=== PATIENT | female | born 1970 | race African-American/Black ===

== ENCOUNTER 2019-05-23 11:28 | Inpatient (IN) | payer OTHER ==
[2019-05-23 13:38] VITALS: BMI 45.8
--- NOTE | 2019-05-23 16:52 | HP ---
CIWA Score Nausea/Vomitin-Mild Nausea/No Vomiting Muscle Tremors: 2 Anxiety: 2 Agitation: 2 Paroxysmal Sweats: 1-Minimal Palms Moist Orientation: 1-Uncertain about Date Tacttile Disturbances: 1-Very Mild Itch/Numbness Auditory Disturbances: 1-Very Mild Visual Disturbances: 1-Very Mild Sensitivity Headache: 1-Very Mild CIWA-Ar Total Score: 13 - Admission Criteria OASAS Guidelines: Admission for Medically Managed Detox: Requires at least one of the followin. CIWA greater than 12 2. Seizures within the past 24 hours 3. Delirium tremens within the past 24 hours 4. Hallucinations within the past 24 hours 5. Acute intervention needed for co occurring medical disorder 6. Acute intervention needed for co occurring psychiatric disorder 7. Severe withdrawal that cannot be handled at a lower level of care (continued vomiting, continued diarrhea, abnormal vital signs) requiring intravenous medication and/or fluids 8. Patient presents the following: CIWA greater than 12 Admission Criteria Met: Admission criteria met Admission ROS [facility] Chief Complaint: benzo detox Allergies/Adverse Reactions: Allergies Allergy/AdvReac Type Severity Reaction Status Date / Time Penicillins AdvReac Intermediate Difficulty Verified 05/23/19 13:23 Breathing History of Present Illness: 48 yo with h/o asthma, obesity, in a MAT methadone, was getting prescribed Klonopin for anxiety and was buying xanax from the street. Pt stated that a month ago she mixed methadone, cocaine and benzo, overdosed and was hospitalized for 2 days. She states her doctor stopped benzo prescription after the overdose. She is buying klonopin from the street- using 2 mg/day. Says she needs to stop using for her kids and risk of losing her new apartment. Pt states she is on methadone 160mg/day. Last dosed today. MH- pt not taking medications, Cocaine- 2 bags/week klonopin- 2mg/day PCP- does not know the name. DUR/ISTOP- Klonopin 1.5mg for 30 days recieved in Apr 10. - Ebola screening Have you traveled outside of the country in the last 21 days: No (N) Have you had contact with anyone from an Ebola affected area: No - Review of Systems Constitutional: No Symptoms Reported EENT: reports: No Symptoms Reported Respiratory: reports: No Symptoms reported Cardiac: reports: No Symptoms Reported GI: reports: No Symptoms Reported : reports: No Symptoms Reported Musculoskeletal: reports: Joint Pain (ankle pain) Integumentary: reports: No Symptoms Reported Neuro: reports: No Symptoms reported Endocrine: reports: No Symptoms Reported, Unexplained Weight Loss Psychiatric: reports: No Sypmtoms Reported Other Systems: Reviewed and Negative Patient History - Patient Medical History Hx Asthma: Yes Other Medical History: pt denies any MH problems at the present - Patient Surgical History Hx Cholecystectomy: Yes - Reproductive History Patient is a Female of Child Bearing Age (11 -55 yrs old): Yes (pt is lesbian, pt has 3 children) Patient : No - Smoking Cessation Smoking history: Current every day smoker Have you smoked in the past 12 months: Yes Aproximately how many cigarettes per day: 3 Initiated information on smoking cessation: Yes 'Breaking Loose' booklet given: 05/23/19 - Substance & Tx. History Hx Alcohol Use: Yes Hx Substance Use: Yes Substance Use Type: Cocaine, Heroin, Opiates Hx Substance Use Treatment: Yes - Substances abused Alprazolam (Xanax) Substance route: Oral Amount used: 4 TABLETS/ DAY Age of first use: 46 Date of last use: 05/22/19 Benzodiazepine (Klonopin) Substance route: Oral Frequency: Daily Amount used: 3 TABLETS Age of first use: 38 Date of last use: 05/21/19 Admission Physical Exam S - Vital Signs Vital Signs: Vital Signs - 24 hr 05/23/19 13:17 Temperature 97.7 F Pulse Rate 82 Respiratory 18 Rate Blood Pressure 113/80 - Physical General Appearance: Yes: Other (morbidly obese) HEENTM: Yes: Within Normal Limits, Hearing grossly Normal, Normal Voice, Pharynx Normal Respiratory: Yes: Within Normal Limits, Chest Non-Tender, Lungs Clear Neck: Yes: Within Normal Limits Cardiology: Yes: Within Normal Limits, Regular Rhythm, Regular Rate Abdominal: Yes: Within Normal Limits, Normal Bowel Sounds Genitourinary: Yes: Within Normal Limits Back: Yes: Within Normal Limits, Normal Inspection Musculoskeletal: Yes: Within Normal Limits Extremities: Yes: Within Normal Limits Neurological: Yes: Within Normal Limits Integumentary: Yes: Other (darkened skin of both lower extr) Lymphatic: Yes: Within Normal Limits Breathalyzer - Breathalyzer Breathalyzer: 0 Urine Drug Screen - Test Device Lot number: [id number] Expiration date: 12/06/20 - Control Is test valid?: Yes - Results Drug screen NEGATIVE: No Urine drug screen results: JONATHAN-Cocaine, MTD-Methadone, BZO-Benzodiazepines Inpatient Rehab Admission - Rehab Decision to Admit Inpatient rehab admission?: No
[2019-05-23] MEDS ORDERED: MAG HYDROX/AL HYDROX/SIMETH 30 ML UNIT-DOSE CUP PO PRN (17:03)
[2019-05-23] MEDS ORDERED: MENTHOL/PHENOL 1 EACH UD MM PRN (17:03)
[2019-05-23] MEDS ORDERED: IBUPROFEN 400 MG TABLET (FP) PO PRN (17:03)
[2019-05-23] MEDS ORDERED: BISMUTH SUBSALICYLATE 524 MG/30 ML UD PO PRN (17:03)
[2019-05-23] MEDS ORDERED: BACLOFEN 10 MG TABLET (FP) PO PRN (17:03)
[2019-05-23] MEDS ORDERED: ACETAMINOPHEN 325 MG TABLET (FP) PO PRN ×2 (17:03)
[2019-05-23] MEDS ORDERED: hydrOXYzine PAMOATE 25 MG CAPSULE (FP) PO PRN (17:03)
[2019-05-23] MEDS ORDERED: MAGNESIUM HYDROX 2400MG/30ML ORAL SUSPENSION 30 ML CUP PO PRN (17:03)
[2019-05-23] MEDS ORDERED: MELATONIN 5 MG TABLETS PO PRN (17:03)
[2019-05-23] MEDS ORDERED: MAGNESIUM CITRATE 300 ML BOTTLE PO PRN (17:03)
[2019-05-23] MEDS ORDERED: ALBUTEROL SO4 2.5/IPRATROPIUM 0.5 INH SOL 3 ML VIAL.NEB. NEB PRN (17:15)
[2019-05-23] MEDS ORDERED: diazePAM 5 MG TABLET PO ONE (17:45)
[2019-05-23] MEDS: HALOPERIDOL 5 MG TABLET PO SCH (22:16)
[2019-05-23] MEDS: ATORVASTATIN CA 20 MG TABLET (FP) PO SCH (22:16)
[2019-05-23] MEDS: THIAMINE HCL 100 MG TABLET (FP) PO SCH (22:17)
[2019-05-23] MEDS: diazePAM 5 MG TABLET PO SCH (22:17)
[2019-05-23] MEDS: BUDESONIDE/FORMETEROL FUMARATE 80/4.5 mcg INHALER IH SCH (22:56)
[2019-05-24] MEDS: diazePAM 5 MG TABLET PO PRN ×3 (01:48→18:50)
[2019-05-24] MEDS: diazePAM 5 MG TABLET PO SCH ×3 (06:52→22:26)
[2019-05-24] MEDS: metFORMIN HCL 500 MG TABLET (FP) PO SCH (06:53)
[2019-05-24] MEDS ORDERED: METHADONE HCL 40 MG DISPERSABLE TABLET PO ONE (09:15)
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
[2019-05-24] MEDS ORDERED: FOLIC ACID 1 MG TABLET (FP) PO SCH (10:00)
[2019-05-24] MEDS: PRENATAL VITAMINS W/ FOLIC ACID TABLET (FP) PO SCH (10:16)
[2019-05-24] MEDS: HALOPERIDOL 5 MG TABLET PO SCH ×2 (10:16→22:26)
[2019-05-24] MEDS: BUDESONIDE/FORMETEROL FUMARATE 80/4.5 mcg INHALER IH SCH ×2 (10:17→22:29)
[2019-05-24] MEDS: BENZTROPINE MESYLATE 1 MG TABLET PO SCH (10:18)
[2019-05-24] MEDS ORDERED: METHOCARBAMOL 500 MG TABLET PO PRN (11:52)
[2019-05-24] MEDS: NICOTINE POLACRILEX 2 MG GUM BUC PRN (13:24)
--- NOTE | 2019-05-24 13:44 | PN ---
[facility] Progress Note Note: pt states that [facility] is not the pharmacy she uses or has her Rx sent there. credit underwriter confirmed with pt that [facility] [address] is the pharmacy she uses. credit underwriter spoke with pharmacist who indicated that pt is on 600mg TID of gabapentin , advair 250/50 Inh, haldo 5mg bid x 2 days only, metformin 500mg qdaily. home medication updated in the home list.
--- NOTE | 2019-05-24 13:48 | PN ---
[facility] CIWA - CIWA Score Nausea/Vomitin-No Nausea/No Vomiting Muscle Tremors: 3 Anxiety: 2 Agitation: 3 Paroxysmal Sweats: 2 Orientation: 0-Oriented Tacttile Disturbances: 0-None Auditory Disturbances: 0-None Visual Disturbances: 0-None Headache: 0-None Present CIWA-Ar Total Score: 10 [facility] Progress Note (SOAP) Subjective: body aches sweats irritable agitation Objective: 05/24/19 13:47 Vital Signs Temperature 97.7 F 05/24/19 10:00 Pulse Rate 60 05/24/19 10:00 Respiratory Rate 18 05/24/19 10:00 Blood Pressure 136/85 05/24/19 10:00 O2 Sat by Pulse Oximetry (%) Laboratory Tests 05/24/19 06:50 POC Glucometer 92 rest of labs pending aaox3 ambulating no acute distress Assessment: 05/24/19 13:47 withdrawals Plan: continue detox increase fluids medication confirmed by pharmacy that pt currently is connected with and her meds updated and ordered.
[2019-05-24] MEDS: GABAPENTIN 300 MG CAPSULE PO SCH ×2 (14:45→22:26)
[2019-05-24] MEDS: NICOTINE 14 MG/24 HOURS TOPICAL PATCH TD SCH (15:07)
[2019-05-24] MEDS ORDERED: SUVOREXANT 10 MG TABLET PO PRN (22:00)
[2019-05-24] MEDS: ATORVASTATIN CA 20 MG TABLET (FP) PO SCH (22:26)
[2019-05-24] MEDS: THIAMINE HCL 100 MG TABLET (FP) PO SCH (22:27)
[2019-05-25] MEDS: diazePAM 5 MG TABLET PO SCH ×3 (05:36→22:08)
[2019-05-25] MEDS: GABAPENTIN 300 MG CAPSULE PO SCH ×3 (05:36→22:08)
[2019-05-25] MEDS: METHADONE HCL 40 MG DISPERSABLE TABLET PO SCH (05:36)
[2019-05-25] MEDS: metFORMIN HCL 500 MG TABLET (FP) PO SCH (06:50)
[2019-05-25] MEDS: diazePAM 5 MG TABLET PO PRN ×3 (07:56→17:14)
[2019-05-25 09:26] LABS: HEMOGLOBIN 12.1 GM/dL (10.7-15.3); MCH 26.4 pg (25.7-33.7); MCHC 31.7 g/dl (32.0-36.0); MEAN CELL VOLUME 83.4 fl (80-96); MEAN PLT VOLUME 10.3 fl (7.5-11.1); PLATELET COUNT 214 K/MM3 (134-434); RBC 4.57 M/mm3 (3.60-5.2); RDW 15.8 % (11.6-15.6)
[2019-05-25 09:37] LABS: ALBUMIN 3.5 g/dl (3.4-5.0); BILIRUBIN,TOTAL 0.4 mg/dL (0.2-1); BLOOD UREA NITROGEN 15.9 mg/dL (7-18); CALCIUM 8.9 mg/dL (8.5-10.1); CREATININE 0.8 mg/dL (0.55-1.3); POTASSIUM 4.5 mmol/L (3.5-5.1); TOT PROT 8.3 g/dl (6.4-8.2)
[2019-05-25] MEDS: PRENATAL VITAMINS W/ FOLIC ACID TABLET (FP) PO SCH (10:23)
[2019-05-25] MEDS: BENZTROPINE MESYLATE 1 MG TABLET PO SCH (10:24)
[2019-05-25] MEDS: NICOTINE 14 MG/24 HOURS TOPICAL PATCH TD SCH (10:24)
[2019-05-25] MEDS: BUDESONIDE/FORMETEROL FUMARATE 80/4.5 mcg INHALER IH SCH ×2 (10:24→22:09)
--- NOTE | 2019-05-25 12:30 | PN ---
S CIWA - CIWA Score Nausea/Vomitin-No Nausea/No Vomiting Muscle Tremors: 4-Moderate,w/Arms Extend Anxiety: 3 Agitation: 3 Paroxysmal Sweats: 3 Orientation: 0-Oriented Tacttile Disturbances: 0-None Auditory Disturbances: 0-None Visual Disturbances: 0-None Headache: 0-None Present CIWA-Ar Total Score: 13 [facility] Progress Note (SOAP) Subjective: seats body aches dry feet with callous Objective: 05/25/19 12:30 Vital Signs Temperature 97.9 F 05/25/19 09:43 Pulse Rate 78 05/25/19 09:43 Respiratory Rate 05/25/19 09:43 Blood Pressure 142/95 05/25/19 09:43 O2 Sat by Pulse Oximetry (%) Laboratory Tests 05/24/19 05/25/19 05/25/19 06:50 05:42 08:20 WBC 6.0 RBC 4.57 Hgb 12.1 Hct 38.0 MCV 83.4 MCH 26.4 MCHC 31.7 L RDW 15.8 H Plt Count 214 MPV 10.3 Sodium Potassium Chloride Carbon Dioxide Anion Gap BUN Creatinine Est GFR (CKD-EPI)AfAm Est GFR (CKD-EPI)NonAf POC Glucometer 92 100 Random Glucose Calcium Total Bilirubin AST ALT Alkaline Phosphatase Total Protein Albumin RPR Titer 05/25/19 05/25/19 08:20 08:20 WBC RBC Hgb Hct MCV MCH MCHC RDW Plt Count MPV Sodium 139 Potassium 4.5 Chloride 106 Carbon Dioxide 28 Anion Gap 5 L BUN 15.9 Creatinine 0.8 Est GFR (CKD-EPI)AfAm 100.33 Est GFR (CKD-EPI)NonAf 86.57 POC Glucometer Random Glucose 92 Calcium 8.9 Total Bilirubin 0.4 AST 24 ALT 31 Alkaline Phosphatase 122 H Total Protein 8.3 H Albumin 3.5 RPR Titer Nonreactive aaox3 ambulating no acute distress Assessment: 05/25/19 12:30 withdrawals Plan: continue detox tinactin cream and vitamin a&d oint to apply to both feet increase fluids
[2019-05-25] MEDS: TOLNAFTATE 1% CREAM 15 GM TUBE TP SCH ×2 (14:43→22:09)
[2019-05-25] MEDS: VITAMINS A AND D TOPICAL OINTMENT 60 GM TUBE TP SCH (17:14)
[2019-05-25] MEDS: ATORVASTATIN CA 20 MG TABLET (FP) PO SCH (22:09)
[2019-05-25] MEDS: THIAMINE HCL 100 MG TABLET (FP) PO SCH (22:09)
[2019-05-26] MEDS: diazePAM 5 MG TABLET PO PRN ×3 (00:35→22:33)
[2019-05-26] MEDS: VITAMINS A AND D TOPICAL OINTMENT 60 GM TUBE TP SCH ×4 (00:50→17:40)
[2019-05-26] MEDS: diazePAM 5 MG TABLET PO SCH ×2 (05:32→17:00)
[2019-05-26] MEDS: METHADONE HCL 40 MG DISPERSABLE TABLET PO SCH (05:32)
[2019-05-26] MEDS: GABAPENTIN 300 MG CAPSULE PO SCH ×3 (05:32→22:32)
[2019-05-26] MEDS: metFORMIN HCL 500 MG TABLET (FP) PO SCH (07:30)
[2019-05-26] MEDS: NICOTINE POLACRILEX 2 MG GUM BUC PRN ×2 (08:03→11:00)
[2019-05-26] MEDS: TOLNAFTATE 1% CREAM 15 GM TUBE TP SCH ×2 (10:55→22:32)
[2019-05-26] MEDS: BUDESONIDE/FORMETEROL FUMARATE 80/4.5 mcg INHALER IH SCH ×2 (10:55→22:32)
[2019-05-26] MEDS: NICOTINE 14 MG/24 HOURS TOPICAL PATCH TD SCH (10:55)
[2019-05-26] MEDS: PRENATAL VITAMINS W/ FOLIC ACID TABLET (FP) PO SCH (10:55)
--- NOTE | 2019-05-26 17:50 | PN ---
S CIWA - CIWA Score Nausea/Vomitin-No Nausea/No Vomiting Muscle Tremors: None Anxiety: 4-Mod. Anxious/Guarded Agitation: 2 Paroxysmal Sweats: No Perspiration Orientation: 0-Oriented Tacttile Disturbances: 2-Mild Itch/Numbness/Burn Auditory Disturbances: 0-None Visual Disturbances: 0-None Headache: 0-None Present CIWA-Ar Total Score: 8 [facility] Progress Note (SOAP) Subjective: Sweating, Anxious, Body Aches. Objective: PATIENT A & O X 3, OBSERVED AMBULATING ON DETOX UNIT UNASSISTED. IN NO ACUTE DISTRESS. 05/26/19 17:47 Vital Signs Temperature 97.5 F L 05/26/19 15:43 Pulse Rate 91 H 05/26/19 15:43 Respiratory Rate 18 05/26/19 15:43 Blood Pressure 141/75 05/26/19 15:43 O2 Sat by Pulse Oximetry (%) Laboratory Tests 05/24/19 05/25/19 05/25/19 06:50 05:42 08:20 WBC 6.0 RBC 4.57 Hgb 12.1 Hct 38.0 MCV 83.4 MCH 26.4 MCHC 31.7 L RDW 15.8 H Plt Count 214 MPV 10.3 Sodium Potassium Chloride Carbon Dioxide Anion Gap BUN Creatinine Est GFR (CKD-EPI)AfAm Est GFR (CKD-EPI)NonAf POC Glucometer 92 100 Random Glucose Calcium Total Bilirubin AST ALT Alkaline Phosphatase Total Protein Albumin RPR Titer 05/25/19 05/25/19 05/26/19 08:20 08:20 05:36 WBC RBC Hgb Hct MCV MCH MCHC RDW Plt Count MPV Sodium 139 Potassium 4.5 Chloride 106 Carbon Dioxide 28 Anion Gap 5 L BUN 15.9 Creatinine 0.8 Est GFR (CKD-EPI)AfAm 100.33 Est GFR (CKD-EPI)NonAf 86.57 POC Glucometer 124 Random Glucose 92 Calcium 8.9 Total Bilirubin 0.4 AST 24 ALT 31 Alkaline Phosphatase 122 H Total Protein 8.3 H Albumin 3.5 RPR Titer Nonreactive LABS NOTED. Assessment: 05/26/19 17:48 WITHDRAWAL SYMPTOMS. Plan: CONTINUE DETOX. PRN VALIUM EXTENDED BY 1 DAY DUE TO PERSISTENT ANXIETY REPORTED BY PATIENT TODAY.
[2019-05-26] MEDS: THIAMINE HCL 100 MG TABLET (FP) PO SCH (22:32)
[2019-05-26] MEDS: ATORVASTATIN CA 20 MG TABLET (FP) PO SCH (22:32)
[2019-05-27] MEDS: VITAMINS A AND D TOPICAL OINTMENT 60 GM TUBE TP SCH ×4 (00:40→19:12)
[2019-05-27] MEDS: NICOTINE POLACRILEX 2 MG GUM BUC PRN ×4 (00:41→13:27)
[2019-05-27] MEDS: METHADONE HCL 40 MG DISPERSABLE TABLET PO SCH (06:32)
[2019-05-27] MEDS: diazePAM 5 MG TABLET PO SCH (06:33)
[2019-05-27] MEDS: GABAPENTIN 300 MG CAPSULE PO SCH ×3 (06:33→21:34)
[2019-05-27] MEDS: metFORMIN HCL 500 MG TABLET (FP) PO SCH (06:34)
[2019-05-27] MEDS: diazePAM 5 MG TABLET PO PRN ×2 (09:08→13:26)
[2019-05-27] MEDS: BUDESONIDE/FORMETEROL FUMARATE 80/4.5 mcg INHALER IH SCH ×2 (10:25→21:35)
[2019-05-27] MEDS: NICOTINE 14 MG/24 HOURS TOPICAL PATCH TD SCH (10:25)
[2019-05-27] MEDS: PRENATAL VITAMINS W/ FOLIC ACID TABLET (FP) PO SCH (10:25)
[2019-05-27] MEDS: TOLNAFTATE 1% CREAM 15 GM TUBE TP SCH ×2 (10:26→21:37)
--- NOTE | 2019-05-27 11:03 | EKG ---
Test Reason : Blood Pressure : / mmHG Vent. Rate : 066 BPM Atrial Rate : 066 BPM P-R Int : 162 ms QRS Dur : 092 ms QT Int : 452 ms P-R-T Axes : 057 037 054 degrees QTc Int : 473 ms NORMAL SINUS RHYTHM MINIMAL VOLTAGE CRITERIA FOR LVH, MAY BE NORMAL VARIANT NONSPECIFIC T WAVE ABNORMALITY PROLONGED QT ABNORMAL ECG NO PREVIOUS ECGS AVAILABLE Confirmed by THOMAS OSEI MD ([id number]) on 05/27/2019 11:03:15 AM Referred By: Confirmed By:THOMAS OSEI MD
--- NOTE | 2019-05-27 14:48 | PN ---
S CIWA - CIWA Score Nausea/Vomitin-No Nausea/No Vomiting Muscle Tremors: 2 Anxiety: 1-Mildly Anxious Agitation: 1-Slight > Activity Paroxysmal Sweats: No Perspiration Orientation: 0-Oriented Tacttile Disturbances: 0-None Auditory Disturbances: 0-None Visual Disturbances: 0-None Headache: 0-None Present CIWA-Ar Total Score: 4 [facility] Progress Note (SOAP) Subjective: feeling better sweats at night anxiety Objective: 05/27/19 14:48 Vital Signs Temperature 98.1 F 05/27/19 14:26 Pulse Rate 68 05/27/19 14:26 Respiratory Rate 16 05/27/19 14:26 Blood Pressure 144/72 05/27/19 14:26 O2 Sat by Pulse Oximetry (%) aaox3 ambulating no acute distress Assessment: 05/27/19 14:48 mild withdrawals Plan: d/c in am
[2019-05-27] MEDS: ATORVASTATIN CA 20 MG TABLET (FP) PO SCH (21:34)
[2019-05-27] MEDS: THIAMINE HCL 100 MG TABLET (FP) PO SCH (21:35)
[2019-05-28] MEDS: VITAMINS A AND D TOPICAL OINTMENT 60 GM TUBE TP SCH ×2 (01:12→06:36)
[2019-05-28] MEDS ORDERED: diazePAM 5 MG TABLET PO ONE (06:00)
[2019-05-28] MEDS: METHADONE HCL 40 MG DISPERSABLE TABLET PO SCH (06:29)
[2019-05-28] MEDS: GABAPENTIN 300 MG CAPSULE PO SCH (06:29)
[2019-05-28] MEDS: metFORMIN HCL 500 MG TABLET (FP) PO SCH (06:37)
[2019-05-28 07:02] VITALS: BP 119/81; PULSE 77; TEMP 97
--- NOTE | 2019-05-28 09:40 | DS ---
[facility] Detox Discharge Summary Admission Date: 05/23/19 Discharge Date: 05/28/19 - History Present History: Cocaine Dependence - Physical Exam Results Vital Signs: Vital Signs Temperature 97.0 F L 05/28/19 07:01 Pulse Rate 77 05/28/19 07:01 Respiratory Rate 18 05/28/19 07:01 Blood Pressure 119/81 05/28/19 07:01 O2 Sat by Pulse Oximetry (%) Pertinent Admission Physical Exam Findings: Vital Signs Temperature 97.0 F L 05/28/19 07:01 Pulse Rate 77 05/28/19 07:01 Respiratory Rate 18 05/28/19 07:01 Blood Pressure 119/81 05/28/19 07:01 O2 Sat by Pulse Oximetry (%) Laboratory Tests 05/24/19 05/25/19 05/25/19 06:50 05:42 08:20 WBC 6.0 RBC 4.57 Hgb 12.1 Hct 38.0 MCV 83.4 MCH 26.4 MCHC 31.7 L RDW 15.8 H Plt Count 214 MPV 10.3 Sodium Potassium Chloride Carbon Dioxide Anion Gap BUN Creatinine Est GFR (CKD-EPI)AfAm Est GFR (CKD-EPI)NonAf POC Glucometer 92 100 Random Glucose Calcium Total Bilirubin AST ALT Alkaline Phosphatase Total Protein Albumin RPR Titer 05/25/19 05/25/19 05/26/19 08:20 08:20 05:36 WBC RBC Hgb Hct MCV MCH MCHC RDW Plt Count MPV Sodium 139 Potassium 4.5 Chloride 106 Carbon Dioxide 28 Anion Gap 5 L BUN 15.9 Creatinine 0.8 Est GFR (CKD-EPI)AfAm 100.33 Est GFR (CKD-EPI)NonAf 86.57 POC Glucometer 124 Random Glucose 92 Calcium 8.9 Total Bilirubin 0.4 AST 24 ALT 31 Alkaline Phosphatase 122 H Total Protein 8.3 H Albumin 3.5 RPR Titer Nonreactive 05/27/19 05/27/19 05/28/19 06:30 15:01 06:27 WBC RBC Hgb Hct MCV MCH MCHC RDW Plt Count MPV Sodium Potassium Chloride Carbon Dioxide Anion Gap BUN Creatinine Est GFR (CKD-EPI)AfAm Est GFR (CKD-EPI)NonAf POC Glucometer 116 180 139 Random Glucose Calcium Total Bilirubin AST ALT Alkaline Phosphatase Total Protein Albumin RPR Titer aaox3 ambulating no acute distress - Treatment Hospital Course: Detox Protocol Followed, Detoxed Safely, Responded well, Discharged Condition Good, Rehab Referral Accepted - Medication Discharge Medications: Ambulatory Orders Fluticasone/Salmeterol [Advair 250-50 Diskus] 1 each IH DAILY 05/24/19 metFORMIN HCL [Metformin HCl ER] 500 mg PO ACBK 05/24/19 - Diagnosis (1) Cocaine dependence Current Visit: Yes Status: Chronic Qualifiers: Substance use status: uncomplicated Qualified Code(s): F14.20 - Cocaine dependence, uncomplicated (2) Sedative hypnotic or anxiolytic dependence Current Visit: Yes Status: Acute (3) Substance induced mood disorder Current Visit: Yes Status: Acute (4) Substance-induced sleep disorder Current Visit: Yes Status: Acute (5) Asthma Current Visit: Yes Status: Chronic Qualifiers: Asthma severity: mild Asthma persistence: unspecified Asthma complication type: unspecified Qualified Code(s): J45.909 - Unspecified asthma , uncomplicated (6) Dyslipidemia Current Visit: Yes Status: Chronic (7) Nicotine dependence Current Visit: Yes Status: Chronic Qualifiers: Nicotine product type: cigarettes Substance use status: uncomplicated Qualified Code(s): F17.210 - Nicotine dependence, cigarettes, uncomplicated (8) Schizophrenia Current Visit: Yes Status: Chronic (9) Type 2 diabetes mellitus Current Visit: Yes Status: Chronic (10) Paranoid schizophrenia Current Visit: Yes Status: Ruled-out - AMA Did Patient Leave Against Medical Advice: No
[2019-05-28] MEDS: PRENATAL VITAMINS W/ FOLIC ACID TABLET (FP) PO SCH (10:22)
[2019-05-28] MEDS: BUDESONIDE/FORMETEROL FUMARATE 80/4.5 mcg INHALER IH SCH (10:22)
[2019-05-28] MEDS: NICOTINE 14 MG/24 HOURS TOPICAL PATCH TD SCH (10:22)
== END 2019-05-28 10:39 | disposition home or self-care (01) | DRG 774 ==
LOC: YASAS 11:28 → Y6N 17:30
PROVIDERS: ADMIT Allergy & Immunology; ATTEND Allergy & Immunology
PROC: HZ2ZZZZ Detoxification Services for Substance Abuse Treatment (ICD-10-PCS; principal; 2019-05-23)
DX: F13.230 Sedative, hypnotic or anxiolytic dependence with withdrawal, uncomplicated (principal); F14.20 Cocaine dependence, uncomplicated; F17.210 Nicotine dependence, cigarettes, uncomplicated; F19.24 Other psychoactive substance dependence with psychoactive substance-induced mood disorder; F19.282 Other psychoactive substance dependence with psychoactive substance-induced sleep disorder; F20.0 Paranoid schizophrenia; E78.5 Hyperlipidemia, unspecified; J45.909 Unspecified asthma, uncomplicated; E11.9 Type 2 diabetes mellitus without complications; E66.01 Morbid (severe) obesity due to excess calories; Z68.42 Body mass index [BMI] 45.0-49.9, adult; Z88.0 Allergy status to penicillin; Z79.84 Long term (current) use of oral hypoglycemic drugs; Z62.810 Personal history of physical and sexual abuse in childhood
CPT/HCPCS: 36415; 80053; 82962; 85027; 86593; 93005; 93010

== ENCOUNTER 2021-06-24 12:44 | Inpatient (IN) | payer OTHER ==
[2021-06-24 14:28] VITALS: BMI 42.7
[2021-06-24] MEDS ORDERED: NICOTINE 10 MG CARTRIDGE (INHALER) IH PRN (14:33)
[2021-06-24] MEDS ORDERED: MAG HYDROX/AL HYDROX/SIMETH 30 ML UNIT-DOSE CUP PO PRN (14:33)
[2021-06-24] MEDS ORDERED: MAGNESIUM CITRATE 300 ML BOTTLE PO PRN (14:33)
[2021-06-24] MEDS ORDERED: ONDANSETRON *ODT* 4 MG TABLET SL PRN (14:33)
[2021-06-24] MEDS ORDERED: MENTHOL/PHENOL 1 EACH UD MM PRN (14:33)
[2021-06-24] MEDS ORDERED: LOPERAMIDE HCL 2 MG CAPSULE PO PRN (14:33)
[2021-06-24] MEDS ORDERED: BISMUTH SUBSALICYLATE 262 MG/15 ML BTL PO PRN (14:33)
[2021-06-24] MEDS ORDERED: MAGNESIUM HYDROX 2400MG/30ML ORAL SUSPENSION 30 ML CUP PO PRN (14:33)
[2021-06-24] MEDS ORDERED: IBUPROFEN 400 MG TABLET (FP) PO PRN (14:33)
[2021-06-24] MEDS ORDERED: ACETAMINOPHEN 325 MG TABLET (FP) PO PRN ×2 (14:33)
[2021-06-24] MEDS ORDERED: METHOCARBAMOL 500 MG TABLET PO PRN (14:33)
[2021-06-24] MEDS ORDERED: DEXTROSE 50%-WATER - 25 GM/50 ML VIAL IVPUSH PRN (19:41)
[2021-06-24] MEDS: hydrOXYzine PAMOATE 25 MG CAPSULE (FP) PO SCH ×2 (20:00→22:03)
[2021-06-24] MEDS: PRENATAL VITAMINS W/ FOLIC ACID TABLET (FP) PO SCH (20:13)
[2021-06-24] MEDS: diazePAM 5 MG TABLET PO SCH (22:02)
[2021-06-24] MEDS: THIAMINE HCL 100 MG TABLET (FP) PO SCH (22:03)
[2021-06-24] MEDS: NICOTINE POLACRILEX 2 MG GUM BUC PRN (22:03)
[2021-06-24] MEDS: MELATONIN 5 MG TABLETS PO SCH (22:03)
[2021-06-24] MEDS: INSULIN SLIDING SCALE (NOVOLOG) 1 VIAL SQ SCH (22:44)
[2021-06-25] MEDS: diazePAM 5 MG TABLET PO PRN ×2 (01:49→20:32)
[2021-06-25] MEDS: NICOTINE POLACRILEX 2 MG GUM BUC PRN ×3 (02:10→20:33)
[2021-06-25] MEDS: diazePAM 5 MG TABLET PO SCH ×4 (06:44→22:32)
[2021-06-25] MEDS: hydrOXYzine PAMOATE 25 MG CAPSULE (FP) PO SCH ×5 (06:45→22:28)
[2021-06-25] MEDS: INSULIN SLIDING SCALE (NOVOLOG) 1 VIAL SQ SCH ×4 (08:17→22:58)
[2021-06-25] MEDS: ASPIRIN 81 MG CHEWABLE TABLETS PO SCH (10:39)
[2021-06-25] MEDS: PRENATAL VITAMINS W/ FOLIC ACID TABLET (FP) PO SCH (10:39)
[2021-06-25] MEDS ORDERED: methaDONE HCL 10 MG TABLET PO SCH (13:00)
[2021-06-25] MEDS ORDERED: methaDONE HCL 40 MG DISPERSABLE TABLET ONE (13:04)
[2021-06-25] MEDS ORDERED: methaDONE HCL 10 MG TABLET ONE (13:04)
[2021-06-25] MEDS: HALOPERIDOL 5 MG TABLET PO SCH ×2 (13:52→22:32)
[2021-06-25] MEDS: BENZTROPINE MESYLATE 1 MG TABLET PO SCH ×2 (13:56→22:32)
[2021-06-25] MEDS: THIAMINE HCL 100 MG TABLET (FP) PO SCH (22:32)
[2021-06-25] MEDS: MELATONIN 5 MG TABLETS PO SCH (22:32)
[2021-06-26] MEDS: diazePAM 5 MG TABLET PO PRN ×2 (00:50→16:16)
[2021-06-26] MEDS: NICOTINE POLACRILEX 2 MG GUM BUC PRN ×2 (00:50→10:12)
[2021-06-26] MEDS ORDERED: methaDONE HCL 10 MG TABLET ONE (04:35)
[2021-06-26] MEDS ORDERED: methaDONE HCL 40 MG DISPERSABLE TABLET ONE (04:36)
[2021-06-26] MEDS: hydrOXYzine PAMOATE 25 MG CAPSULE (FP) PO SCH ×5 (06:13→22:24)
[2021-06-26] MEDS: diazePAM 5 MG TABLET PO SCH ×3 (06:14→22:24)
[2021-06-26] MEDS: INSULIN SLIDING SCALE (NOVOLOG) 1 VIAL SQ SCH ×4 (08:14→22:27)
[2021-06-26] MEDS: BENZTROPINE MESYLATE 1 MG TABLET PO SCH ×2 (10:11→22:25)
[2021-06-26] MEDS: PRENATAL VITAMINS W/ FOLIC ACID TABLET (FP) PO SCH (10:11)
[2021-06-26] MEDS: ASPIRIN 81 MG CHEWABLE TABLETS PO SCH (10:12)
[2021-06-26] MEDS: HALOPERIDOL 5 MG TABLET PO SCH ×2 (10:12→22:25)
[2021-06-26] MEDS: MELATONIN 5 MG TABLETS PO SCH (22:25)
[2021-06-26] MEDS: THIAMINE HCL 100 MG TABLET (FP) PO SCH (22:25)
[2021-06-27] MEDS: NICOTINE POLACRILEX 2 MG GUM BUC PRN (01:31)
[2021-06-27] MEDS: diazePAM 5 MG TABLET PO PRN ×2 (02:30→12:13)
[2021-06-27] MEDS ORDERED: methaDONE HCL 10 MG TABLET ONE (04:30)
[2021-06-27] MEDS ORDERED: methaDONE HCL 40 MG DISPERSABLE TABLET ONE (04:31)
[2021-06-27] MEDS: hydrOXYzine PAMOATE 25 MG CAPSULE (FP) PO SCH ×5 (06:31→22:29)
[2021-06-27] MEDS: diazePAM 5 MG TABLET PO SCH ×2 (06:31→17:29)
[2021-06-27] MEDS: INSULIN SLIDING SCALE (NOVOLOG) 1 VIAL SQ SCH ×4 (06:36→22:33)
[2021-06-27] MEDS: HALOPERIDOL 5 MG TABLET PO SCH ×2 (12:02→22:29)
[2021-06-27] MEDS: ASPIRIN 81 MG CHEWABLE TABLETS PO SCH (12:02)
[2021-06-27] MEDS: BENZTROPINE MESYLATE 1 MG TABLET PO SCH ×2 (12:02→22:29)
[2021-06-27] MEDS: PRENATAL VITAMINS W/ FOLIC ACID TABLET (FP) PO SCH (12:05)
[2021-06-27] MEDS: THIAMINE HCL 100 MG TABLET (FP) PO SCH (22:29)
[2021-06-27] MEDS: MELATONIN 5 MG TABLETS PO SCH (22:29)
[2021-06-28] MEDS ORDERED: methaDONE HCL 40 MG DISPERSABLE TABLET ONE (02:06)
[2021-06-28] MEDS ORDERED: methaDONE HCL 10 MG TABLET ONE (02:06)
[2021-06-28] MEDS ORDERED: diazePAM 5 MG TABLET PO ONE (06:00)
[2021-06-28] MEDS: hydrOXYzine PAMOATE 25 MG CAPSULE (FP) PO SCH ×5 (06:21→22:53)
[2021-06-28] MEDS: INSULIN SLIDING SCALE (NOVOLOG) 1 VIAL SQ SCH ×4 (06:44→22:53)
[2021-06-28] MEDS: PRENATAL VITAMINS W/ FOLIC ACID TABLET (FP) PO SCH (10:14)
[2021-06-28] MEDS: BENZTROPINE MESYLATE 1 MG TABLET PO SCH ×2 (10:14→22:50)
[2021-06-28] MEDS: HALOPERIDOL 5 MG TABLET PO SCH ×2 (10:15→22:50)
[2021-06-28] MEDS: NICOTINE POLACRILEX 2 MG GUM BUC PRN (10:18)
[2021-06-28] MEDS: ASPIRIN 81 MG CHEWABLE TABLETS PO SCH (10:52)
[2021-06-28] MEDS: MELATONIN 5 MG TABLETS PO SCH (22:50)
[2021-06-28] MEDS: THIAMINE HCL 100 MG TABLET (FP) PO SCH (22:50)
[2021-06-29] MEDS: NICOTINE POLACRILEX 2 MG GUM BUC PRN (03:32)
[2021-06-29] MEDS ORDERED: methaDONE HCL 10 MG TABLET ONE (04:56)
[2021-06-29] MEDS ORDERED: methaDONE HCL 40 MG DISPERSABLE TABLET ONE (04:57)
[2021-06-29] MEDS: hydrOXYzine PAMOATE 25 MG CAPSULE (FP) PO SCH ×2 (06:43→11:08)
[2021-06-29] MEDS: INSULIN SLIDING SCALE (NOVOLOG) 1 VIAL SQ SCH ×2 (08:13→12:05)
[2021-06-29 08:59] VITALS: BP 117/80; PULSE 65; TEMP 97.1
[2021-06-29] MEDS: HALOPERIDOL 5 MG TABLET PO SCH (11:07)
[2021-06-29] MEDS: ASPIRIN 81 MG CHEWABLE TABLETS PO SCH (11:07)
[2021-06-29] MEDS: PRENATAL VITAMINS W/ FOLIC ACID TABLET (FP) PO SCH (11:08)
[2021-06-29] MEDS: BENZTROPINE MESYLATE 1 MG TABLET PO SCH (11:47)
[2021-06-29 17:09] LABS: SARS-CoV-2 NAA Not Detected
== END 2021-06-29 12:14 | disposition home or self-care (01) | DRG 773 ==
LOC: YASAS 12:44 → Y3N 19:12
PROVIDERS: ADMIT Allergy & Immunology; ATTEND Allergy & Immunology
PROC: HZ2ZZZZ Detoxification Services for Substance Abuse Treatment (ICD-10-PCS; principal; 2021-06-24)
DX: F10.230 Alcohol dependence with withdrawal, uncomplicated (principal); F11.20 Opioid dependence, uncomplicated; F14.20 Cocaine dependence, uncomplicated; F13.20 Sedative, hypnotic or anxiolytic dependence, uncomplicated; F17.210 Nicotine dependence, cigarettes, uncomplicated; F19.282 Other psychoactive substance dependence with psychoactive substance-induced sleep disorder; F19.24 Other psychoactive substance dependence with psychoactive substance-induced mood disorder; F20.9 Schizophrenia, unspecified; F41.8 Other specified anxiety disorders; F32.A Depression, unspecified; E78.5 Hyperlipidemia, unspecified; E11.9 Type 2 diabetes mellitus without complications; Z79.84 Long term (current) use of oral hypoglycemic drugs; J45.909 Unspecified asthma, uncomplicated; Z62.810 Personal history of physical and sexual abuse in childhood; E66.01 Morbid (severe) obesity due to excess calories; Z68.41 Body mass index [BMI] 40.0-44.9, adult; Z88.0 Allergy status to penicillin
CPT/HCPCS: 82962; C9803; U0003; U0005

== ENCOUNTER 2022-04-06 19:25 | Inpatient (IN) | payer OTHER ==
[2022-04-06 23:04] VITALS: BMI 36.7
[2022-04-07] MEDS ORDERED: guaiFENesin 200 MG/10 ML 10 ML UNIT-DOSE CUPS PO PRN (00:57)
[2022-04-07] MEDS ORDERED: ACETAMINOPHEN 325 MG TABLET (FP) PO PRN (00:57)
[2022-04-07] MEDS ORDERED: MAGNESIUM HYDROX 2400MG/30ML ORAL SUSPENSION 30 ML CUP PO PRN (00:57)
[2022-04-07] MEDS ORDERED: LOPERAMIDE HCL 2 MG CAPSULE PO PRN (00:57)
[2022-04-07] MEDS ORDERED: IBUPROFEN 400 MG TABLET (FP) PO PRN (00:57)
[2022-04-07] MEDS ORDERED: P-EPHED 60MG/TRIPROLIDI 2.5MG TABLET PO PRN (00:57)
[2022-04-07] MEDS ORDERED: BENZOCAINE/MENTHOL (CHLORASEPTIC ) LOZENGE MM PRN (00:57)
[2022-04-07] MEDS ORDERED: POLYETHYLENE GLYCOL (HEALTHYLAX) 3350 17 GM PACKET PO PRN (00:57)
[2022-04-07 05:28] VITALS: RESP 18
[2022-04-07] MEDS: INSULIN SLIDING SCALE (NOVOLOG) 1 VIAL SQ SCH ×4 (06:27→21:33)
[2022-04-07] MEDS: PRENATAL VITAMINS W/ FOLIC ACID TABLET (FP) PO SCH (09:27)
[2022-04-07] MEDS: NICOTINE 14 MG/24 HOURS TOPICAL PATCH TD SCH (09:27)
[2022-04-07] MEDS: methaDONE HCL 40 MG DISPERSABLE TABLET PO SCH (09:27)
[2022-04-07 09:34] LABS: HEMATOCRIT 32.4 % (32.4-45.2); HEMOGLOBIN 9.9 GM/dL (10.7-15.3); MCH 25.4 pg (25.7-33.7); MCHC 30.6 g/dl (32.0-36.0); MEAN CELL VOLUME 82.9 fl (80-96); PLATELET COUNT 225 10^3/uL (134-434); RBC 3.91 M/mm3 (3.60-5.2); RDW 15.5 % (11.6-15.6); WHITE BLOOD COUNT 4.8 K/mm3 (4.0-10.0)
[2022-04-07 09:40] LABS: URINE APPEARANCE CLOUDY; URINE BILIRUBIN NEGATIVE (NEGATIVE); URINE COLOR YELLOW; URINE GLUCOSE (UA) NEGATIVE (NEGATIVE); URINE KETONE TRACE (NEGATIVE); URINE LEUK ESTERASE NEGATIVE (NEGATIVE); URINE NITRITE NEGATIVE (NEGATIVE); URINE PROTEIN TRACE (NEGATIVE)
[2022-04-07 09:55] LABS: ALBUMIN 2.7 g/dl (3.4-5.0); BLOOD UREA NITROGEN 19.4 mg/dL (7-18); CALCIUM 8.7 mg/dL (8.5-10.1)
[2022-04-07 09:58] LABS: CREATININE 1.1 mg/dL (0.55-1.3)
[2022-04-07 09:59] LABS: BILIRUBIN,TOTAL 0.7 mg/dL (0.2-1)
[2022-04-07 10:00] LABS: TOT PROT 7.2 g/dl (6.4-8.2)
[2022-04-07] MEDS: NICOTINE POLACRILEX 2 MG GUM BC PRN (11:11)
[2022-04-07] MEDS: HALOPERIDOL 5 MG TABLET PO SCH ×2 (11:12→21:31)
[2022-04-07] MEDS: BENZTROPINE MESYLATE 1 MG TABLET PO SCH ×2 (11:12→21:30)
[2022-04-07 11:21] LABS: SYPHILIS W/ RPR CONF NON-REACTIVE (NONREACTIVE)
[2022-04-07] MEDS ORDERED: hydrOXYzine PAMOATE 25 MG CAPSULE (FP) PO PRN (11:24)
[2022-04-07] MEDS ORDERED: clonazePAM 0.5 MG ODT TABLETS SL PRN (13:42)
[2022-04-07] MEDS: THIAMINE HCL 100 MG TABLET (FP) PO SCH (21:31)
[2022-04-07] MEDS: clonazePAM 0.5 MG ODT TABLETS SL SCH (21:31)
[2022-04-07] MEDS ORDERED: SUVOREXANT 10 MG TABLET PO PRN (22:00)
[2022-04-07] MEDS ORDERED: MELATONIN 5 MG TABLETS PO SCH (22:00)
[2022-04-08] MEDS: methaDONE HCL 40 MG DISPERSABLE TABLET PO SCH (05:56)
[2022-04-08] MEDS: NICOTINE POLACRILEX 2 MG GUM BC PRN ×2 (06:05→12:29)
[2022-04-08] MEDS: INSULIN SLIDING SCALE (NOVOLOG) 1 VIAL SQ SCH ×3 (06:05→16:57)
[2022-04-08] MEDS: HALOPERIDOL 5 MG TABLET PO SCH ×2 (10:27→21:16)
[2022-04-08] MEDS: PRENATAL VITAMINS W/ FOLIC ACID TABLET (FP) PO SCH (10:27)
[2022-04-08] MEDS: clonazePAM 0.5 MG ODT TABLETS SL SCH ×2 (10:27→21:15)
[2022-04-08] MEDS: BENZTROPINE MESYLATE 1 MG TABLET PO SCH ×2 (10:27→21:16)
[2022-04-08] MEDS: NICOTINE 14 MG/24 HOURS TOPICAL PATCH TD SCH (10:28)
[2022-04-08] MEDS ORDERED: INSULIN (NOVOLOG) ASPART 100 UNITS/ML 10ML VIAL ONE (16:37)
[2022-04-08] MEDS: THIAMINE HCL 100 MG TABLET (FP) PO SCH (21:16)
[2022-04-09] MEDS: methaDONE HCL 40 MG DISPERSABLE TABLET PO SCH (06:18)
[2022-04-09] MEDS: INSULIN SLIDING SCALE (NOVOLOG) 1 VIAL SQ SCH ×2 (06:20→16:23)
[2022-04-09] MEDS: NICOTINE POLACRILEX 2 MG GUM BC PRN ×3 (07:02→16:29)
[2022-04-09] MEDS: BENZTROPINE MESYLATE 1 MG TABLET PO SCH ×2 (10:18→21:18)
[2022-04-09] MEDS: NICOTINE 14 MG/24 HOURS TOPICAL PATCH TD SCH (10:18)
[2022-04-09] MEDS: HALOPERIDOL 5 MG TABLET PO SCH ×2 (10:18→21:18)
[2022-04-09] MEDS: PRENATAL VITAMINS W/ FOLIC ACID TABLET (FP) PO SCH (10:18)
[2022-04-09] MEDS: clonazePAM 0.5 MG ODT TABLETS SL SCH ×2 (10:18→21:18)
[2022-04-09] MEDS: THIAMINE HCL 100 MG TABLET (FP) PO SCH (21:18)
[2022-04-10] MEDS: NICOTINE POLACRILEX 2 MG GUM BC PRN ×3 (01:24→21:36)
[2022-04-10] MEDS: methaDONE HCL 40 MG DISPERSABLE TABLET PO SCH (06:40)
[2022-04-10] MEDS: INSULIN SLIDING SCALE (NOVOLOG) 1 VIAL SQ SCH ×2 (06:43→16:44)
[2022-04-10] MEDS: PRENATAL VITAMINS W/ FOLIC ACID TABLET (FP) PO SCH (10:15)
[2022-04-10] MEDS: BENZTROPINE MESYLATE 1 MG TABLET PO SCH ×2 (10:17→21:29)
[2022-04-10] MEDS: clonazePAM 0.5 MG ODT TABLETS SL SCH ×2 (10:17→21:29)
[2022-04-10] MEDS: HALOPERIDOL 5 MG TABLET PO SCH ×2 (10:17→21:29)
[2022-04-10] MEDS: NICOTINE 14 MG/24 HOURS TOPICAL PATCH TD SCH (10:18)
[2022-04-10] MEDS: THIAMINE HCL 100 MG TABLET (FP) PO SCH (21:29)
[2022-04-10] MEDS ORDERED: SUVOREXANT 10 MG TABLET PO PRN (22:00)
[2022-04-11] MEDS: NICOTINE POLACRILEX 2 MG GUM BC PRN ×4 (04:15→21:32)
[2022-04-11] MEDS: methaDONE HCL 40 MG DISPERSABLE TABLET PO SCH (06:09)
[2022-04-11] MEDS: INSULIN SLIDING SCALE (NOVOLOG) 1 VIAL SQ SCH ×2 (06:11→16:34)
[2022-04-11] MEDS: clonazePAM 0.5 MG ODT TABLETS SL SCH ×2 (10:01→21:29)
[2022-04-11] MEDS: PRENATAL VITAMINS W/ FOLIC ACID TABLET (FP) PO SCH (10:02)
[2022-04-11] MEDS: HALOPERIDOL 5 MG TABLET PO SCH ×2 (10:02→21:29)
[2022-04-11] MEDS: BENZTROPINE MESYLATE 1 MG TABLET PO SCH ×2 (10:02→21:29)
[2022-04-11] MEDS: NICOTINE 14 MG/24 HOURS TOPICAL PATCH TD SCH (10:02)
[2022-04-11] MEDS: THIAMINE HCL 100 MG TABLET (FP) PO SCH (21:29)
[2022-04-12] MEDS: methaDONE HCL 40 MG DISPERSABLE TABLET PO SCH (06:37)
[2022-04-12] MEDS: INSULIN SLIDING SCALE (NOVOLOG) 1 VIAL SQ SCH ×2 (08:27→16:44)
[2022-04-12] MEDS: PRENATAL VITAMINS W/ FOLIC ACID TABLET (FP) PO SCH (10:15)
[2022-04-12] MEDS: BENZTROPINE MESYLATE 1 MG TABLET PO SCH ×2 (10:15→21:34)
[2022-04-12] MEDS: clonazePAM 0.5 MG ODT TABLETS SL SCH ×2 (10:15→21:34)
[2022-04-12] MEDS: NICOTINE 14 MG/24 HOURS TOPICAL PATCH TD SCH (10:15)
[2022-04-12] MEDS: HALOPERIDOL 5 MG TABLET PO SCH ×2 (10:15→21:34)
[2022-04-12] MEDS: NICOTINE POLACRILEX 2 MG GUM BC PRN ×2 (13:39→18:48)
[2022-04-12] MEDS ORDERED: GABAPENTIN 300 MG CAPSULE PO ONE (13:46)
[2022-04-12] MEDS: FERROUS SO4 325 MG TABLET (FP) PO SCH (18:21)
[2022-04-12] MEDS: THIAMINE HCL 100 MG TABLET (FP) PO SCH (21:34)
[2022-04-12] MEDS: GABAPENTIN 300 MG CAPSULE PO SCH (21:37)
[2022-04-13] MEDS: methaDONE HCL 40 MG DISPERSABLE TABLET PO SCH (06:14)
[2022-04-13] MEDS: INSULIN SLIDING SCALE (NOVOLOG) 1 VIAL SQ SCH ×2 (06:23→16:59)
[2022-04-13] MEDS: FERROUS SO4 325 MG TABLET (FP) PO SCH ×3 (07:44→17:00)
[2022-04-13] MEDS: clonazePAM 0.5 MG ODT TABLETS SL SCH ×2 (10:17→21:39)
[2022-04-13] MEDS: NICOTINE 14 MG/24 HOURS TOPICAL PATCH TD SCH (10:18)
[2022-04-13] MEDS: PRENATAL VITAMINS W/ FOLIC ACID TABLET (FP) PO SCH (10:18)
[2022-04-13] MEDS: BENZTROPINE MESYLATE 1 MG TABLET PO SCH ×2 (10:18→21:39)
[2022-04-13] MEDS: GABAPENTIN 300 MG CAPSULE PO SCH (10:18)
[2022-04-13] MEDS: HALOPERIDOL 5 MG TABLET PO SCH ×2 (10:18→21:39)
[2022-04-13] MEDS: NICOTINE POLACRILEX 2 MG GUM BC PRN ×3 (10:21→21:43)
[2022-04-13] MEDS ORDERED: ALBUTEROL SO4 HFA INHALER IH PRN (10:47)
[2022-04-13] MEDS: ASPIRIN 81 MG CHEWABLE TABLETS PO SCH (12:40)
[2022-04-13] MEDS ORDERED: GABAPENTIN 300 MG CAPSULE PO SCH (14:00)
[2022-04-13] MEDS: GABAPENTIN 100 MG CAPSULE PO SCH ×2 (14:16→21:39)
[2022-04-13] MEDS: metFORMIN HCL 500 MG TABLET (FP) PO SCH (17:01)
[2022-04-13] MEDS: THIAMINE HCL 100 MG TABLET (FP) PO SCH (21:39)
[2022-04-13] MEDS: ATORVASTATIN CA 40 MG TABLET (FP) PO SCH (21:39)
[2022-04-13] MEDS ORDERED: SUVOREXANT 15 MG TABLET PO PRN (22:00)
[2022-04-14] MEDS: methaDONE HCL 40 MG DISPERSABLE TABLET PO SCH (06:41)
[2022-04-14] MEDS: GABAPENTIN 100 MG CAPSULE PO SCH ×3 (06:43→21:42)
[2022-04-14] MEDS: NICOTINE POLACRILEX 2 MG GUM BC PRN ×2 (06:45→20:32)
[2022-04-14] MEDS: metFORMIN HCL 500 MG TABLET (FP) PO SCH ×2 (06:45→16:48)
[2022-04-14] MEDS: INSULIN SLIDING SCALE (NOVOLOG) 1 VIAL SQ SCH ×2 (06:50→16:47)
[2022-04-14] MEDS: FERROUS SO4 325 MG TABLET (FP) PO SCH ×3 (07:20→18:03)
[2022-04-14] MEDS: BENZTROPINE MESYLATE 1 MG TABLET PO SCH ×2 (10:10→21:42)
[2022-04-14] MEDS: PRENATAL VITAMINS W/ FOLIC ACID TABLET (FP) PO SCH (10:10)
[2022-04-14] MEDS: HALOPERIDOL 5 MG TABLET PO SCH ×2 (10:10→21:42)
[2022-04-14] MEDS: ASPIRIN 81 MG CHEWABLE TABLETS PO SCH (10:10)
[2022-04-14] MEDS: NICOTINE 14 MG/24 HOURS TOPICAL PATCH TD SCH (10:11)
[2022-04-14] MEDS: clonazePAM 0.5 MG ODT TABLETS SL SCH ×2 (10:11→21:42)
[2022-04-14] MEDS: THIAMINE HCL 100 MG TABLET (FP) PO SCH (21:42)
[2022-04-14] MEDS: ATORVASTATIN CA 40 MG TABLET (FP) PO SCH (21:42)
[2022-04-14] MEDS ORDERED: PATIENT'S OWN MEDICATION (NON-FORMULARY) (Clonazepam [Klonopin] 1 MG Tablet) PO SCH (22:00)
[2022-04-15] MEDS: methaDONE HCL 40 MG DISPERSABLE TABLET PO SCH (06:47)
[2022-04-15] MEDS: GABAPENTIN 100 MG CAPSULE PO SCH ×3 (06:47→21:39)
[2022-04-15] MEDS: metFORMIN HCL 500 MG TABLET (FP) PO SCH (06:50)
[2022-04-15] MEDS: INSULIN SLIDING SCALE (NOVOLOG) 1 VIAL SQ SCH ×2 (07:01→16:56)
[2022-04-15] MEDS: FERROUS SO4 325 MG TABLET (FP) PO SCH ×3 (07:01→17:28)
[2022-04-15] MEDS: ASPIRIN 81 MG CHEWABLE TABLETS PO SCH (10:26)
[2022-04-15] MEDS: PRENATAL VITAMINS W/ FOLIC ACID TABLET (FP) PO SCH (10:26)
[2022-04-15] MEDS: NICOTINE 14 MG/24 HOURS TOPICAL PATCH TD SCH (10:27)
[2022-04-15] MEDS: BENZTROPINE MESYLATE 1 MG TABLET PO SCH ×2 (10:27→21:39)
[2022-04-15] MEDS: HALOPERIDOL 5 MG TABLET PO SCH ×2 (10:27→21:39)
[2022-04-15] MEDS: clonazePAM 0.5 MG ODT TABLETS SL SCH ×2 (10:27→21:38)
[2022-04-15] MEDS: NICOTINE 10 MG CARTRIDGE (INHALER) IH PRN ×2 (11:04→16:55)
[2022-04-15] MEDS: NICOTINE POLACRILEX 2 MG GUM BC PRN ×2 (11:52→18:26)
[2022-04-15] MEDS: ATORVASTATIN CA 40 MG TABLET (FP) PO SCH (21:38)
[2022-04-15] MEDS: THIAMINE HCL 100 MG TABLET (FP) PO SCH (21:38)
[2022-04-16] MEDS: GABAPENTIN 100 MG CAPSULE PO SCH ×3 (06:06→21:46)
[2022-04-16] MEDS: methaDONE HCL 40 MG DISPERSABLE TABLET PO SCH (06:07)
[2022-04-16] MEDS: INSULIN SLIDING SCALE (NOVOLOG) 1 VIAL SQ SCH ×2 (06:41→16:44)
[2022-04-16] MEDS: FERROUS SO4 325 MG TABLET (FP) PO SCH ×3 (07:17→17:11)
[2022-04-16] MEDS: NICOTINE 10 MG CARTRIDGE (INHALER) IH PRN ×3 (07:22→21:48)
[2022-04-16] MEDS: NICOTINE POLACRILEX 2 MG GUM BC PRN ×4 (08:41→21:48)
[2022-04-16] MEDS: PRENATAL VITAMINS W/ FOLIC ACID TABLET (FP) PO SCH (10:04)
[2022-04-16] MEDS: clonazePAM 0.5 MG ODT TABLETS SL SCH ×2 (10:04→21:45)
[2022-04-16] MEDS: HALOPERIDOL 5 MG TABLET PO SCH ×2 (10:05→21:46)
[2022-04-16] MEDS: ASPIRIN 81 MG CHEWABLE TABLETS PO SCH (10:05)
[2022-04-16] MEDS: BENZTROPINE MESYLATE 1 MG TABLET PO SCH ×2 (10:05→21:46)
[2022-04-16] MEDS: NICOTINE 14 MG/24 HOURS TOPICAL PATCH TD SCH (10:07)
[2022-04-16] MEDS: ATORVASTATIN CA 40 MG TABLET (FP) PO SCH (21:46)
[2022-04-16] MEDS: THIAMINE HCL 100 MG TABLET (FP) PO SCH (21:46)
[2022-04-16] MEDS ORDERED: SUVOREXANT 15 MG TABLET PO PRN (22:00)
[2022-04-17] MEDS: NICOTINE POLACRILEX 2 MG GUM BC PRN ×4 (00:08→21:45)
[2022-04-17] MEDS: GABAPENTIN 100 MG CAPSULE PO SCH ×3 (06:14→21:41)
[2022-04-17] MEDS: methaDONE HCL 40 MG DISPERSABLE TABLET PO SCH (06:14)
[2022-04-17] MEDS: NICOTINE 10 MG CARTRIDGE (INHALER) IH PRN ×3 (06:16→21:44)
[2022-04-17] MEDS: MAG HYDROX/AL HYDROX/SIMETH 30 ML UNIT-DOSE CUP PO PRN (06:17)
[2022-04-17] MEDS: INSULIN SLIDING SCALE (NOVOLOG) 1 VIAL SQ SCH ×2 (07:48→16:44)
[2022-04-17] MEDS: FERROUS SO4 325 MG TABLET (FP) PO SCH ×3 (07:52→16:42)
[2022-04-17] MEDS: NICOTINE 14 MG/24 HOURS TOPICAL PATCH TD SCH (10:21)
[2022-04-17] MEDS: PRENATAL VITAMINS W/ FOLIC ACID TABLET (FP) PO SCH (10:21)
[2022-04-17] MEDS: clonazePAM 0.5 MG ODT TABLETS SL SCH ×2 (10:22→21:41)
[2022-04-17] MEDS: BENZTROPINE MESYLATE 1 MG TABLET PO SCH ×2 (10:22→21:42)
[2022-04-17] MEDS: HALOPERIDOL 5 MG TABLET PO SCH ×2 (10:22→21:42)
[2022-04-17] MEDS: ASPIRIN 81 MG CHEWABLE TABLETS PO SCH (10:22)
[2022-04-17] MEDS: LIDOCAINE 5% TOPICAL PATCH TP SCH (11:19)
[2022-04-17] MEDS: HYDROCHLOROTHIAZIDE 25 MG TABLET (FP) PO SCH (11:30)
[2022-04-17] MEDS: THIAMINE HCL 100 MG TABLET (FP) PO SCH (21:42)
[2022-04-17] MEDS: ATORVASTATIN CA 40 MG TABLET (FP) PO SCH (21:42)
[2022-04-17] MEDS: LIDOCAINE PATCH REMOVAL MC SCH (21:49)
[2022-04-18] MEDS: methaDONE HCL 40 MG DISPERSABLE TABLET PO SCH (06:00)
[2022-04-18] MEDS: GABAPENTIN 100 MG CAPSULE PO SCH ×3 (06:00→21:56)
[2022-04-18] MEDS: NICOTINE 10 MG CARTRIDGE (INHALER) IH PRN ×3 (06:09→21:57)
[2022-04-18] MEDS: INSULIN SLIDING SCALE (NOVOLOG) 1 VIAL SQ SCH ×2 (07:06→16:57)
[2022-04-18] MEDS: FERROUS SO4 325 MG TABLET (FP) PO SCH ×3 (07:06→17:10)
[2022-04-18] MEDS: NICOTINE POLACRILEX 2 MG GUM BC PRN ×3 (08:28→22:00)
[2022-04-18] MEDS: ASPIRIN 81 MG CHEWABLE TABLETS PO SCH (10:05)
[2022-04-18] MEDS: PRENATAL VITAMINS W/ FOLIC ACID TABLET (FP) PO SCH (10:05)
[2022-04-18] MEDS: HALOPERIDOL 5 MG TABLET PO SCH ×2 (10:05→21:57)
[2022-04-18] MEDS: HYDROCHLOROTHIAZIDE 25 MG TABLET (FP) PO SCH (10:05)
[2022-04-18] MEDS: BENZTROPINE MESYLATE 1 MG TABLET PO SCH ×2 (10:05→21:56)
[2022-04-18] MEDS: clonazePAM 0.5 MG ODT TABLETS SL SCH ×2 (10:05→21:56)
[2022-04-18] MEDS: LIDOCAINE 5% TOPICAL PATCH TP SCH (10:06)
[2022-04-18] MEDS: NICOTINE 14 MG/24 HOURS TOPICAL PATCH TD SCH (10:06)
[2022-04-18] MEDS ORDERED: ATORVASTATIN CA 20 MG TABLET (FP) ONE (19:25)
[2022-04-18] MEDS: ATORVASTATIN CA 40 MG TABLET (FP) PO SCH (21:56)
[2022-04-18] MEDS: THIAMINE HCL 100 MG TABLET (FP) PO SCH (21:56)
[2022-04-18] MEDS: MAG HYDROX/AL HYDROX/SIMETH 30 ML UNIT-DOSE CUP PO PRN (21:59)
[2022-04-18] MEDS: LIDOCAINE PATCH REMOVAL MC SCH (22:39)
[2022-04-19] MEDS: GABAPENTIN 100 MG CAPSULE PO SCH ×3 (06:13→21:43)
[2022-04-19] MEDS: methaDONE HCL 40 MG DISPERSABLE TABLET PO SCH (06:13)
[2022-04-19] MEDS: NICOTINE POLACRILEX 2 MG GUM BC PRN ×2 (06:17→16:55)
[2022-04-19] MEDS: FERROUS SO4 325 MG TABLET (FP) PO SCH ×3 (07:30→16:53)
[2022-04-19] MEDS: INSULIN SLIDING SCALE (NOVOLOG) 1 VIAL SQ SCH ×2 (07:30→16:53)
[2022-04-19] MEDS: PRENATAL VITAMINS W/ FOLIC ACID TABLET (FP) PO SCH (10:20)
[2022-04-19] MEDS: clonazePAM 0.5 MG ODT TABLETS SL SCH ×2 (10:21→21:42)
[2022-04-19] MEDS: LIDOCAINE 5% TOPICAL PATCH TP SCH (10:21)
[2022-04-19] MEDS: HYDROCHLOROTHIAZIDE 25 MG TABLET (FP) PO SCH (10:21)
[2022-04-19] MEDS: ASPIRIN 81 MG CHEWABLE TABLETS PO SCH (10:21)
[2022-04-19] MEDS: HALOPERIDOL 5 MG TABLET PO SCH ×2 (10:21→21:42)
[2022-04-19] MEDS: BENZTROPINE MESYLATE 1 MG TABLET PO SCH ×2 (10:21→21:42)
[2022-04-19] MEDS: NICOTINE 14 MG/24 HOURS TOPICAL PATCH TD SCH (10:21)
[2022-04-19] MEDS: metFORMIN HCL 500 MG TABLET (FP) PO SCH (16:52)
[2022-04-19] MEDS: ATORVASTATIN CA 40 MG TABLET (FP) PO SCH (21:42)
[2022-04-19] MEDS: THIAMINE HCL 100 MG TABLET (FP) PO SCH (21:42)
[2022-04-19] MEDS: LIDOCAINE PATCH REMOVAL MC SCH (21:43)
[2022-04-20] MEDS: NICOTINE POLACRILEX 2 MG GUM BC PRN (00:42)
[2022-04-20] MEDS: methaDONE HCL 40 MG DISPERSABLE TABLET PO SCH (06:25)
[2022-04-20] MEDS: metFORMIN HCL 500 MG TABLET (FP) PO SCH ×2 (06:25→16:44)
[2022-04-20] MEDS: GABAPENTIN 100 MG CAPSULE PO SCH ×3 (06:25→21:44)
[2022-04-20] MEDS: INSULIN SLIDING SCALE (NOVOLOG) 1 VIAL SQ SCH ×2 (06:28→16:44)
[2022-04-20] MEDS: FERROUS SO4 325 MG TABLET (FP) PO SCH ×3 (07:19→17:26)
[2022-04-20] MEDS: clonazePAM 0.5 MG ODT TABLETS SL SCH ×2 (10:22→21:43)
[2022-04-20] MEDS: PRENATAL VITAMINS W/ FOLIC ACID TABLET (FP) PO SCH (10:22)
[2022-04-20] MEDS: HALOPERIDOL 5 MG TABLET PO SCH ×2 (10:23→21:44)
[2022-04-20] MEDS: BENZTROPINE MESYLATE 1 MG TABLET PO SCH ×2 (10:23→21:44)
[2022-04-20] MEDS: LIDOCAINE 5% TOPICAL PATCH TP SCH (10:23)
[2022-04-20] MEDS: ASPIRIN 81 MG CHEWABLE TABLETS PO SCH (10:23)
[2022-04-20] MEDS: NICOTINE 14 MG/24 HOURS TOPICAL PATCH TD SCH (10:23)
[2022-04-20] MEDS: HYDROCHLOROTHIAZIDE 25 MG TABLET (FP) PO SCH (10:25)
[2022-04-20] MEDS: NICOTINE 10 MG CARTRIDGE (INHALER) IH PRN (10:28)
[2022-04-20] MEDS: THIAMINE HCL 100 MG TABLET (FP) PO SCH (21:44)
[2022-04-20] MEDS: ATORVASTATIN CA 40 MG TABLET (FP) PO SCH (21:44)
[2022-04-20] MEDS: LIDOCAINE PATCH REMOVAL MC SCH (21:58)
[2022-04-20] MEDS ORDERED: SUVOREXANT 15 MG TABLET PO PRN (22:00)
[2022-04-21] MEDS: NICOTINE POLACRILEX 2 MG GUM BC PRN (02:44)
[2022-04-21] MEDS: methaDONE HCL 40 MG DISPERSABLE TABLET PO SCH (06:25)
[2022-04-21] MEDS: INSULIN SLIDING SCALE (NOVOLOG) 1 VIAL SQ SCH (06:26)
[2022-04-21] MEDS: GABAPENTIN 100 MG CAPSULE PO SCH (06:26)
[2022-04-21] MEDS: metFORMIN HCL 500 MG TABLET (FP) PO SCH (06:26)
[2022-04-21] MEDS: NICOTINE 10 MG CARTRIDGE (INHALER) IH PRN (06:52)
[2022-04-21] MEDS: FERROUS SO4 325 MG TABLET (FP) PO SCH (07:06)
[2022-04-21 08:17] VITALS: TEMP 97.8
[2022-04-21] MEDS: clonazePAM 0.5 MG ODT TABLETS SL SCH (09:22)
[2022-04-21] MEDS: PRENATAL VITAMINS W/ FOLIC ACID TABLET (FP) PO SCH (09:22)
[2022-04-21] MEDS: BENZTROPINE MESYLATE 1 MG TABLET PO SCH (09:22)
[2022-04-21] MEDS: HYDROCHLOROTHIAZIDE 25 MG TABLET (FP) PO SCH (09:23)
[2022-04-21] MEDS: ASPIRIN 81 MG CHEWABLE TABLETS PO SCH (09:23)
[2022-04-21] MEDS: HALOPERIDOL 5 MG TABLET PO SCH (09:23)
[2022-04-21] MEDS: LIDOCAINE 5% TOPICAL PATCH TP SCH (09:23)
[2022-04-21] MEDS: NICOTINE 14 MG/24 HOURS TOPICAL PATCH TD SCH (09:25)
[2022-04-21 10:59] VITALS: BP 117/79; PULSE 73
== END 2022-04-21 09:40 | disposition home or self-care (01) | DRG 772 ==
LOC: YASAS 19:25 → Y5N 04-07 04:38
PROVIDERS: ADMIT Allergy & Immunology; ATTEND Psychiatry & Neurology Pain Medicine
PROC: HZ42ZZZ Group Counseling for Substance Abuse Treatment, Cognitive-Behavioral (ICD-10-PCS; principal; 2022-04-07)
DX: F10.20 Alcohol dependence, uncomplicated (principal); F11.20 Opioid dependence, uncomplicated; F14.20 Cocaine dependence, uncomplicated; F12.20 Cannabis dependence, uncomplicated; F17.210 Nicotine dependence, cigarettes, uncomplicated; F20.0 Paranoid schizophrenia; F19.280 Other psychoactive substance dependence with psychoactive substance-induced anxiety disorder; F19.282 Other psychoactive substance dependence with psychoactive substance-induced sleep disorder; I10 Essential (primary) hypertension; J45.909 Unspecified asthma, uncomplicated; E66.01 Morbid (severe) obesity due to excess calories; Z68.36 Body mass index [BMI] 36.0-36.9, adult; E11.9 Type 2 diabetes mellitus without complications; R60.0 Localized edema; G62.9 Polyneuropathy, unspecified; Z88.0 Allergy status to penicillin; Z62.810 Personal history of physical and sexual abuse in childhood; Z79.84 Long term (current) use of oral hypoglycemic drugs; Z86.69 Personal history of other diseases of the nervous system and sense organs; Z56.0 Unemployment, unspecified
CPT/HCPCS: 36415; 80053; 81003; 82962; 83036; 85027; 86780; 86803; 87522; 87811; 93005; 93010; C9803-CS; U0003; U0005

== ENCOUNTER 2024-02-20 13:17 | Inpatient (IN) | payer OTHER ==
[2024-02-20 14:21] VITALS: BMI 32.9
[2024-02-20] MEDS ORDERED: IBUPROFEN 600 MG TABLET (FP) PO PRN (16:25)
[2024-02-20] MEDS ORDERED: BENZONATATE 200 MG CAPSULE PO PRN (16:25)
[2024-02-20] MEDS ORDERED: hydrOXYzine PAMOATE 25 MG CAPSULE (FP) PO PRN (16:25)
[2024-02-20] MEDS ORDERED: MAGNESIUM HYDROX 2400MG/30ML ORAL SUSPENSION 30 ML CUP PO PRN (16:25)
[2024-02-20] MEDS ORDERED: BENZOCAINE/MENTHOL (CHLORASEPTIC ) LOZENGE MM PRN (16:25)
[2024-02-20] MEDS ORDERED: LOPERAMIDE HCL 2 MG CAPSULE PO PRN (16:25)
[2024-02-20] MEDS ORDERED: ONDANSETRON *ODT* 4 MG TABLET SL PRN (16:25)
[2024-02-20] MEDS ORDERED: guaiFENesin 600 MG TABLET.ER (FP) PO PRN (16:25)
[2024-02-20] MEDS ORDERED: POLYETHYLENE GLYCOL (HEALTHYLAX) 3350 17 GM PACKET PO PRN (16:25)
[2024-02-20] MEDS ORDERED: BISMUTH SUBSALICYLATE 524 MG/30 ML PO PRN (16:25)
[2024-02-20] MEDS ORDERED: IBUPROFEN 400 MG TABLET (FP) PO PRN (16:25)
[2024-02-20] MEDS ORDERED: NALOXONE (NYS OPIOID OVERDOSE PROGRAM) 4 MG/0.1 ML SPRAY NS PRN (16:25)
[2024-02-20] MEDS ORDERED: MAG HYDROX/AL HYDROX/SIMETH 30 ML UNIT-DOSE CUP PO PRN (16:25)
[2024-02-20] MEDS ORDERED: DICYCLOMINE HCL 10 MG CAPSULE PO PRN (16:25)
[2024-02-20] MEDS ORDERED: NALOXONE (NARCAN) HCL 4 MG/0.1 ML SPRAY NS PRN (16:25)
[2024-02-20] MEDS ORDERED: ACETAMINOPHEN 325 MG TABLET (FP) PO PRN (16:25)
[2024-02-20] MEDS ORDERED: METHOCARBAMOL 500 MG TABLET PO PRN (16:25)
[2024-02-20] MEDS ORDERED: ALBUTEROL SO4 HFA INHALER IH PRN (16:44)
[2024-02-20] MEDS: NICOTINE 14 MG/24 HOURS TOPICAL PATCH TD SCH (18:41)
[2024-02-20] MEDS: NICOTINE POLACRILEX 4 MG GUM BUC PRN (18:42)
[2024-02-20] MEDS: PRENATAL VITAMINS W/ FOLIC ACID TABLET (FP) PO SCH (18:42)
[2024-02-20] MEDS: MELATONIN 5 MG TABLETS PO SCH (22:34)
[2024-02-20] MEDS: THIAMINE 100 MG TABLET PO SCH (22:34)
[2024-02-20] MEDS: ATORVASTATIN CA 80 MG TABLET (FP) PO SCH (22:34)
[2024-02-20] MEDS: clonazePAM 0.5 MG ODT TABLETS SL SCH (22:34)
[2024-02-21] MEDS ORDERED: methaDONE HCL 10 MG TABLET PO SCH (09:00)
[2024-02-21] MEDS: BUDESONIDE/FORMETEROL FUMARATE 80/4.5 mcg INHALER IH SCH (09:54)
[2024-02-21] MEDS: ASPIRIN 81 MG CHEWABLE TABLETS PO SCH (09:54)
[2024-02-21] MEDS: FERROUS SO4 325 MG TABLET (FP) PO SCH (09:54)
[2024-02-21] MEDS: LISINOPRIL 20 MG TABLET PO SCH (10:23)
[2024-02-21] MEDS: HYDROCHLOROTHIAZIDE 25 MG TABLET (FP) PO SCH (10:23)
[2024-02-21] MEDS: BENZTROPINE MESYLATE 1 MG TABLET PO SCH (10:40)
[2024-02-21] MEDS: HALOPERIDOL 5 MG TABLET PO SCH (10:41)
[2024-02-21 12:31] VITALS: RESP 18
[2024-02-21] MEDS ORDERED: SELENIUM SULFIDE 2.25% 180 ML SHAMPOO TP SCH (15:45)
[2024-02-21 16:57] VITALS: BP 130/87; PULSE 58; TEMP 97.6
[2024-02-21] MEDS ORDERED: CEFDINIR 300 MG PO SCH (22:00)
[2024-02-21] MEDS ORDERED: MONTELUKAST NA 10 MG TABLET PO SCH (22:00)
[2024-02-21] MEDS ORDERED: ATORVASTATIN CA 40 MG TABLET (FP) PO SCH (22:00)
== END 2024-02-21 20:17 | disposition left against medical advice (07) | DRG 773 ==
LOC: YASAS 13:17 → Y3N 16:55
PROVIDERS: ADMIT Allergy & Immunology; ATTEND Surgery
PROC: HZ2ZZZZ Detoxification Services for Substance Abuse Treatment (ICD-10-PCS; principal; 2024-02-20)
DX: F11.23 Opioid dependence with withdrawal (principal); F13.20 Sedative, hypnotic or anxiolytic dependence, uncomplicated; F14.20 Cocaine dependence, uncomplicated; F20.0 Paranoid schizophrenia; F41.9 Anxiety disorder, unspecified; F32.A Depression, unspecified; E78.5 Hyperlipidemia, unspecified; I10 Essential (primary) hypertension; E11.9 Type 2 diabetes mellitus without complications; M54.50 Low back pain, unspecified; G89.29 Other chronic pain; F91.8 Other conduct disorders; Z91.199 Patient's noncompliance with other medical treatment and regimen due to unspecified reason; Z88.0 Allergy status to penicillin
CPT/HCPCS: 80305; 80307; 93005; 93010